=== PATIENT | female | born 1980 | race Hispanic/Latino ===

== ENCOUNTER 2017-02-28 17:39 | Emergency (ER) | payer OTHER ==
[2017-02-28 18:41] LABS: #Basophils 0.1 thou/uL (0.0-0.2); #Eosinphils 0.1 thou/uL (0.0-0.7); #Lymphocytes 3.2 thou/uL (1.20-3.40); #Monocytes 0.6 thou/uL (0.11-0.59); %Basophils 1.5 % (0.0-1.0); %Lymphocytes 35.7 % (21.0-51.0); %Monocytes 6.3 % (0.0-10.0); Hematocrit 40.9 % (36.0-47.0); Mean Platelet Volume 7.3 fL (7.4-10.4); Red Blood Cell (RBC) Count 4.36 mill/uL (4.20-5.40)
[2017-02-28 18:48] LABS: Prothrombin Time 13.1 SEC (12.0-14.7)
--- NOTE | 2017-02-28 18:50 | RAD ---
CHEST ONE VIEW 02/28/17 HISTORY: Pain. COMPARISON: Chest one view, 11/14/12. FINDINGS: The lungs are clear. No pneumothorax or effusion. The cardiac silhouette and mediastinal contours are within normal limits. IMPRESSION: No acute intrathoracic abnormality. POS: [id number]
[2017-02-28 19:02] LABS: ALT (SGPT) 18 U/L (8-55); AST (SGOT) 17 U/L (5-34); Alkaline Phosphatase 52 U/L (40-150); Anion Gap 11 mmol/L (10-20); BUN (Urea Nitrogen) 14 mg/dL (7.0-18.7); Bilirubin, Total 0.3 mg/dL (0.2-1.2); CK (CPK) 42 U/L (29-168); Calc. Creatinine Clearance 0 mL/min (70-130); Calcium 9.8 mg/dL (7.8-10.44); Carbon Dioxide 24 mmol/L (22-29); Chloride 105 mmol/L (98-107); Estimated GFR-MDRD 87; Globulin 3.7 g/dL (2.4-3.5)
[2017-02-28 19:12] LABS: Troponin I Less than 0.010 ng/mL (< 0.028)
[2017-02-28 21:38] LABS: Bilirubin Negative (Negative); Blood, Urine Negative (Negative); Glucose, Urine (Dipstick) Negative (Negative); Ketone, Urine Negative (Negative); Nitrite Positive (Negative); Protein, Urine (Dipstick) Negative (Neg-Trace); Urobilinogen 0.2 mg/dL (0.2-1.0)
[2017-02-28 21:41] LABS: Bacteria/HPF 4+ HPF (None Seen); Hyaline Casts/LPF 4-6 HYALINE CAST LPF (0-3 Hyaline)
[2017-02-28 22:08] LABS: RBC/HPF 0-3 HPF (0-3)
== END 2017-02-28 22:12 | disposition home or self-care (01) ==
LOC: ERS 17:39
DX: N39.0 Urinary tract infection, site not specified (principal); M79.1 Myalgia; E78.5 Hyperlipidemia, unspecified
CPT/HCPCS: 36415; 71010; 80053; 81003; 81015; 82550; 82553; 84484; 84703; 85025; 85610; 85730; 87077; 87086; 87186; 93005

== ENCOUNTER 2021-10-06 20:58 | Emergency (ER) | payer OTHER, SELFPAY ==
[2021-10-06] MEDS ORDERED: Boostrix 0.5 ML (Tdap) VIAL ONE (21:54)
== END 2021-10-06 23:37 | disposition home or self-care (01) ==
LOC: ERS 20:58
DX: S06.9X9A Unspecified intracranial injury with loss of consciousness of unspecified duration, initial encounter (principal); W18.2XXA Fall in (into) shower or empty bathtub, initial encounter; Y93.E1 Activity, personal bathing and showering; E78.5 Hyperlipidemia, unspecified; E78.00 Pure hypercholesterolemia, unspecified; Z79.899 Other long term (current) drug therapy; Z23 Encounter for immunization
CPT/HCPCS: 70450; 90471; 90715